=== PATIENT | female | born 1985 | race Caucasian/White ===

== ENCOUNTER 2018-10-26 21:10 | Inpatient (IN) | payer MEDICAID ==
[2018-10-26] MEDS ORDERED: ceFAZolin 2 GM in Premix Bag 1 BAG IV ONE (21:37)
[2018-10-26] MEDS ORDERED: Scopolamine 1.5 MG Transdermal Patch TOP ONE (21:38)
[2018-10-26] MEDS ORDERED: Citric Acid/Sodium Citrate Solution 30 ML Cup PO ONE (21:48)
[2018-10-26] MEDS ORDERED: Citric Acid/Sodium Citrate Solution 30 ML Cup ONE (21:53)
--- NOTE | 2018-10-26 22:13 | PCM.LDHP ---
L&D History of Present Illness - General Date of Service: 10/26/18 Admit Problem/Dx: Patient Status Order with Admit Dx/Problem 10/26/18 21:03 Admission Status [Patient Status] [ADT] Routine Admission Diagnosis/Problem Admission Diagnosis/Problem deliv due to previous difficult deliv, deliv, curr hospitaliz Source of Information: Patient History Limitations: Reports: No Limitations - History of Present Illness Introduction:: Nena is a 33 yo female from [place] [address] at 39 weeks who presented in active labor. Started earlier today,and she believes she has been leaking fluid all day. Her last 2 deliveries were C sections,the first due to breech delivery. She also states that she had a 'bladder repair' after the second one.She is anxious and complains of "freaking out' ,being nauseas. denies any fever,chills or vaginal bleeding Timing/Duration: Reports: minutes: (5-6) Location, : Reports: Abdomen Improves with: Reports: None Worsens with: Reports: None Associated Symptoms: Reports: vaginal discharge. Denies: vaginal bleeding, vaginal clots, vaginal tissue - Related Data Allergies/Adverse Reactions: Allergies Allergy/AdvReac Type Severity Reaction Status Date / Time latex Allergy Other Verified 10/27/18 01:42 Home Medications: Home Meds Omeprazole Magnesium [Prilosec Otc] 20 mg PO BID 10/27/18 [History] Vits #93/Iron Fum/FA [ Formula Tablet] 1 tab PO DAILY 10/27/18 [History] Ranitidine [Zantac] 75 mg PO DAILY 10/27/18 [History] buPROPion [Wellbutrin] 300 mg PO BID 10/27/18 [History] busPIRone [Buspar] 30 mg PO BID 10/27/18 [History] traZODone 100 mg PO DAILY PRN 10/27/18 [History] Past Medical History Psychiatric History: Reports: Anxiety, Depression - Past Surgical History Female Surgical History: Reports: Section Social & Family History - Tobacco Use Smoking Status *Q: Current Some Day Smoker - Recreational Drug Use Recreational Drug Type: Reports: Methamphetamine H&P Review of Systems - Review of Systems: Review Of Systems: ROS reveals no pertinent complaints other than HPI. L&D Exam - Exam Exam: See Below - OB Specific Contraction Intensity: Moderate Heart Rate (FHR) Variability: Moderate (6-25 bmp) - Donahue Score Donahue Score Consistency: Firm Donahue Score Effacement: 31-50% Donahue Score Dilation: 1-2 cm Donahue Score Infant's Station: -2 - Exam General: Alert, Oriented HEENT: PERRLA, Conjunctiva Clear, EACs Clear, EOMI, Hearing Intact, Mucosa Moist & [place], Nares Patent, Normal Nasal Septum, Posterior Pharynx Clear, TMs Clear Neck: Supple, Trachea Midline Lungs: Clear to Auscultation, Normal Respiratory Effort Cardiovascular: Regular Rate, Regular Rhythm GI/Abdominal Exam: Normal Bowel Sounds, Soft, Non-Tender, No Organomegaly, No Distention, No Abnormal Bruit, No Mass, Pelvis Stable Rectal Exam: Normal Exam, Normal Rectal Tone Genitourinary: Normal external exam, Normal bimanual exam, Normal speculum exam Back Exam: Normal Inspection, Full Range of Motion Extremities: Normal Inspection, Normal Range of Motion, Non-Tender, No Pedal Edema, Normal Capillary Refill Skin: Warm, Dry, Intact Neurological: Cranial Nerves Intact, Reflexes Equal Bilateral Psychiatric: Alert, Normal Affect, Normal Mood - Patient Data Lab Results Last 24 hrs: Laboratory Results - last 24 hr 10/26/18 Range/Units 21:47 WBC 10.1 (4.5-12.0) X10-3/uL RBC 3.49 (3.23-5.20) x10(6)uL Hgb 9.6 L (11.5-15.5) g/dL Hct 28.7 L (30.0-51.3) % MCV 82.0 (80-96) fL MCH 27.4 L (27.7-33.6) pg MCHC 33.4 (32.2-35.4) g/dL RDW 14.1 (11.5-15.5) % Plt Count 230 (125-369) X10(3)uL MPV 10.4 (7.4-10.4) fL Neut % (Auto) 65.5 (46-82) % Lymph % (Auto) 26.2 (13-37) % [place] % (Auto) 7.2 (4-12) % Eos % (Auto) 1 (1.0-5.0) % Baso % (Auto) 0 (0-2) % Neut # (Auto) 6.7 (1.6-8.3) # Lymph # (Auto) 2.6 (0.6-5.0) # [place] # (Auto) 0.7 (0.0-1.3) # Eos # (Auto) 0.1 (0.0-0.8) # Baso # (Auto) 0.0 (0.0-0.2) # Result Diagrams: 10/27/18 06:00 10/27/18 06:00 - Problem List (1) Term SNOMED Code(s): 76071106 ICD Code: Z34.90 - ENCNTR FOR SUPRVSN OF NORMAL , UNSP, UNSP TRIMESTER Status: Acute Current Visit: Yes (2) H/O: SNOMED Code(s): 842490619 ICD Code: Z98.891 - HISTORY OF UTERINE SCAR FROM PREVIOUS SURGERY Status: Acute Current Visit: Yes (3) Active labor SNOMED Code(s): 711612212 ICD Code: [id number] - Status: Acute Current Visit: Yes (4) Drug abuse during SNOMED Code(s): 886289225 ICD Code: O99.320 - DRUG USE COMPLICATING , UNSPECIFIED TRIMESTER; F19.10 - OTHER PSYCHOACTIVE SUBSTANCE ABUSE, UNCOMPLICATED Status: Acute Current Visit: Yes Problem List Initiated/Reviewed/Updated: Yes Orders Last 24hrs: Active Orders 24 hr Category Date Time Status Admission Status [Patient Status] [ADT] Routine ADT 10/26/18 21:03 Active TYPE AND SCREEN [BBK] Routine Lab 10/26/18 21:47 Received Assessment/Plan Comment:: Discussed risks and benefits. Obtained consent. Will CBC,type and screen and proceed for a repeat C section,transverse,lower uterine section.
[2018-10-26] MEDS ORDERED: Metoclopramide 10 MG/2 ML SDV IVPUSH ONE (23:19)
[2018-10-26] MEDS ORDERED: Midazolam 1 MG/ML 2 ML SDV IV ONE (23:19)
[2018-10-26] MEDS ORDERED: Ketorolac 30 MG/ML SDV IVPUSH ONE (23:19)
[2018-10-26] MEDS ORDERED: Morphine PF 10 MG/10 ML SDV IV ONE (23:19)
[2018-10-26] MEDS ORDERED: Ondansetron 4 MG/2 ML SDV IVPUSH ONE (23:19)
[2018-10-26] MEDS ORDERED: ePHEDrine 50 MG/ML SDV IVPUSH PRN (23:21)
[2018-10-26] MEDS ORDERED: Naloxone 0.4 MG/ML SDV IVPUSH PRN ×2 (23:21→23:47)
[2018-10-26] MEDS ORDERED: diphenhydrAMINE 50 MG/ML SDV IVPUSH PRN (23:21)
[2018-10-26] MEDS ORDERED: Ondansetron 4 MG/2 ML SDV IVPUSH PRN (23:47)
[2018-10-26] MEDS ORDERED: Ketorolac 15 MG/ML SDV IVPUSH PRN (23:47)
[2018-10-26] MEDS ORDERED: diphenhydrAMINE 50 MG/ML SDV IV PRN (23:47)
[2018-10-27] MEDS: Lactated Ringers 1,000 ML IV SCH ×5 (00:18→17:00)
--- NOTE | 2018-10-27 06:23 | OR ---
DATE OF OPERATION: 10/26/2018 SURGEON: Humphrey Blackburn MD ATTENDANT CHILD ACTIVITY: Dr. Olivo. PREOPERATIVE DIAGNOSES: 1. Intrauterine at 39 weeks, history of previous section x2, and the patient desires repeat section. 2. History of drug abuse. POSTOPERATIVE DIAGNOSES: 1. Intrauterine at 39 weeks, history of previous section x2, and the patient desires repeat section. 2. History of drug abuse. PROCEDURE: Repeat section, lower uterine segment. ANESTHESIA: Spinal. ESTIMATED BLOOD LOSS: 850 mL. COMPLICATIONS: None. FINDINGS: A male infant in breech presentation with scores of 9 and 9, weight pending. Uterus and tubes and ovaries were noted and to be normal. INDICATIONS: A 33-year-old female, who presented at term from the long term in uterine contractions and has had previous C-sections. The procedure was described in detail to the patient, and she accepted the risks and benefits. PROCEDURE NOTE: The patient was taken to the OR, where the spinal anesthesia was administered without difficulty. The patient was prepped and draped in the usual sterile fashion in the dorsal supine position with a leftward tilt. A Pfannenstiel incision was made with a scalpel and carried through to the underlying layer of fascia. The fascia was incised in the midline and extended laterally with Horne scissors. Chin clamps were used to elevate the superior and inferior aspects of the fascial incision and the underlying rectus muscles were sharply dissected using Horne scissors. The muscles were dissected in the midline and they were found to be attached to the peritoneum, which was entered sharply, making sure not to injure the bladder or the internal organs. After stretching, a bladder blade was placed and the uterine reflection of the peritoneum was made. An incision was made around the lower uterine segment in a transverse fashion, which was then extended with manual traction. Clear fluid was noted. The infant was found to be in servando breech and was delivered without any difficulty. The cord was cut and clamped. The was handed to the awaiting nurses. The placenta was delivered after obtaining cord blood. The uterus was exteriorized and cleared of all clots and debris. The uterine incision was repaired in 2 layers using 0 Vicryl sutures. Hemostasis was visualized, one [id number] stitch was needed to complete hemostasis. The uterus was returned to the maternal abdomen and copious irrigation was performed of the pelvis. The fascia was then closed with a 1-0 Vicryl suture and the skin was closed with a 3-0 Vicryl subcutaneously. The sponge, lap, and instrument counts were correct x2. The patient was stable at the completion of the procedure and was subsequently transferred to the recovery room in stable condition. Estimated blood loss about 850 mL. Please note that the patient got Pitocin after the delivery of placenta and had got 2 g of Ancef prior to the incision by standard protocol. /[id number] CHRIS/MODL
[2018-10-27] MEDS ORDERED: Sodium Chloride 0.9% 10 ML Syringe FLUSH PRN (09:01)
--- NOTE | 2018-10-27 09:04 | PCM.PNPP ---
- General Info Date of Service: 10/27/18 Subjective Update: Has some pain.No bleeding Functional Status: Reports: Tolerating Diet. Denies: Pain Controlled, Ambulating - Review of Systems HEENT: Reports: No Symptoms Pulmonary: Reports: No Symptoms Cardiovascular: Reports: No Symptoms Gastrointestinal: Reports: No Symptoms - Patient Data Vital Signs - Most Recent: Last Vital Signs Temp 97.5 F 10/27/18 00:15 Pulse 104 H 10/27/18 04:48 Resp 18 10/27/18 02:30 BP 107/61 10/27/18 03:22 Pulse Ox 99 10/27/18 04:48 Weight - Most Recent: 68.039 kg I&O - Last 24 Hours: Intake & Output 10/26/18 10/27/18 10/27/18 22:59 06:59 14:59 Output Total 350 Balance -350 Lab Results - Last 24 Hours: Laboratory Results - last 24 hr 10/26/18 10/26/18 10/27/18 Range/Units 21:47 21:47 06:00 WBC 10.1 17.0 H (4.5-12.0) X10-3/uL RBC 3.49 2.50 L (3.23-5.20) x10(6)uL Hgb 9.6 L 7.0 L (11.5-15.5) g/dL Hct 28.7 L 20.4 L* (30.0-51.3) % MCV 82.0 81.8 (80-96) fL MCH 27.4 L 28.0 (27.7-33.6) pg MCHC 33.4 34.2 (32.2-35.4) g/dL RDW 14.1 13.8 (11.5-15.5) % Plt Count 230 192 (125-369) X10(3)uL MPV 10.4 11.2 H (7.4-10.4) fL Neut % (Auto) 65.5 72.4 (46-82) % Lymph % (Auto) 26.2 20.3 (13-37) % [place] % (Auto) 7.2 5.7 (4-12) % Eos % (Auto) 1 1 (1.0-5.0) % Baso % (Auto) 0 0 (0-2) % Neut # (Auto) 6.7 12.3 H (1.6-8.3) # Lymph # (Auto) 2.6 3.4 (0.6-5.0) # [place] # (Auto) 0.7 1.0 (0.0-1.3) # Eos # (Auto) 0.1 0.2 (0.0-0.8) # Baso # (Auto) 0.0 0.1 (0.0-0.2) # Sodium (135-145) mmol/L Potassium (3.5-5.3) mmol/L Chloride (100-110) mmol/L Carbon Dioxide (21-32) mmol/L BUN (7-18) mg/dL Creatinine (0.55-1.02) mg/dL Est Cr Clr Drug Dosing mL/min Estimated GFR (MDRD) (>60) BUN/Creatinine Ratio (9-20) Glucose (80-116) mg/dL Calcium (8.6-10.2) mg/dL Blood Type A POSITIVE Gel Antibody Screen Negative 10/27/18 Range/Units 06:00 WBC (4.5-12.0) X10-3/uL RBC (3.23-5.20) x10(6)uL Hgb (11.5-15.5) g/dL Hct (30.0-51.3) % MCV (80-96) fL MCH (27.7-33.6) pg MCHC (32.2-35.4) g/dL RDW (11.5-15.5) % Plt Count (125-369) X10(3)uL MPV (7.4-10.4) fL Neut % (Auto) (46-82) % Lymph % (Auto) (13-37) % [place] % (Auto) (4-12) % Eos % (Auto) (1.0-5.0) % Baso % (Auto) (0-2) % Neut # (Auto) (1.6-8.3) # Lymph # (Auto) (0.6-5.0) # [place] # (Auto) (0.0-1.3) # Eos # (Auto) (0.0-0.8) # Baso # (Auto) (0.0-0.2) # Sodium 136 (135-145) mmol/L Potassium 3.9 (3.5-5.3) mmol/L Chloride 104 (100-110) mmol/L Carbon Dioxide 24 (21-32) mmol/L BUN 13 (7-18) mg/dL Creatinine 0.5 L (0.55-1.02) mg/dL Est Cr Clr Drug Dosing 133.62 mL/min Estimated GFR (MDRD) > 60 (>60) BUN/Creatinine Ratio 26.0 H (9-20) Glucose 83 (80-116) mg/dL Calcium 7.7 L (8.6-10.2) mg/dL Blood Type Gel Antibody Screen Med Orders - Current: Current Medications Diphenhydramine HCl (Benadryl) 25 mg IVPUSH Q6H PRN PRN Reason: Itching or Nausea Diphenhydramine HCl (Benadryl) 25 mg IV ONETIME PRN PRN Reason: Pruritus Ephedrine Sulfate (Ephedrine Sulfate) 5 mg IVPUSH ASDIRECTED PRN PRN Reason: Other Ferrous Sulfate (Ferrous Sulfate) 325 mg PO TIDMEALS [facility]OR[facility] Lactated Ringer's (Ringers, Lactated) 1,000 mls @ 250 mls/hr IV ASDIRECTED DORA Last Admin: 10/27/18 08:53 Dose: 250 mls/hr Ibuprofen (Motrin) 600 mg PO Q6H [facility] Naloxone HCl (Narcan) 0.1 mg IVPUSH ONETIME PRN PRN Reason: Respiratory Depression Naloxone HCl (Narcan) 0.1 mg IVPUSH ONETIME PRN PRN Reason: Oversedation Ondansetron HCl (Zofran) 4 mg IVPUSH Q6H PRN PRN Reason: Nausea/Vomiting Oxycodone/Acetaminophen (Percocet 325-5 Mg) 1 tab PO Q6H PRN PRN Reason: Breakthrough Pain Sodium Chloride (Saline Flush) 10 ml FLUSH ASDIRECTED PRN PRN Reason: IV Use Discontinued Medications Citric Acid/Sodium Citrate (Bicitra Solution) 30 ml PO ONETIME ONE Stop: 10/26/18 21:49 Last Admin: 10/27/18 02:56 Dose: 30 ml Citric Acid/Sodium Citrate (Bicitra Solution) Confirm Administered Dose 30 ml .ROUTE .STK-MED ONE Stop: 10/26/18 21:54 Last Admin: 10/27/18 01:30 Dose: Not Given Cefazolin Sodium/Dextrose 2 gm (/ Premix) 50 mls @ 100 mls/hr IV ONETIME ONE Stop: 10/26/18 22:06 Last Admin: 10/26/18 21:58 Dose: 100 mls/hr Ketorolac Tromethamine (Toradol) 15 mg IVPUSH Q6H PRN PRN Reason: Pain Stop: 10/31/18 23:49 Last Admin: 10/27/18 03:27 Dose: 15 mg Scopolamine (Transderm-Scop) 1.5 mg TOP ONETIME ONE Stop: 10/26/18 21:39 Last Admin: 10/26/18 21:59 Dose: 1.5 mg - Interaction Infant Disposition, : to Nursery - Recovery Exam Fundal Tone: Firm Fundal Level: At Umbilicus Fundal Placement: Midline Lochia Amount: Scant Lochia Color: Rubra/Red - Exam General: Alert, Oriented Neck: Supple Lungs: Clear to Auscultation Cardiovascular: Regular Rate - Problem List & Annotations (1) Term SNOMED Code(s): 25637120 Code(s): Z34.90 - ENCNTR FOR SUPRVSN OF NORMAL , UNSP, UNSP TRIMESTER Status: Acute Current Visit: Yes (2) H/O: SNOMED Code(s): 145262239 Code(s): Z98.891 - HISTORY OF UTERINE SCAR FROM PREVIOUS SURGERY Status: Acute Current Visit: Yes (3) Active labor SNOMED Code(s): 793754902 Code(s): RCC6850 - Status: Acute Current Visit: Yes (4) Drug abuse during SNOMED Code(s): 705936417 Code(s): O99.320 - DRUG USE COMPLICATING , UNSPECIFIED TRIMESTER; F19.10 - OTHER PSYCHOACTIVE SUBSTANCE ABUSE, UNCOMPLICATED Status: Acute Current Visit: Yes (5) Anemia, blood loss SNOMED Code(s): 765266626 Code(s): D50.0 - IRON DEFICIENCY ANEMIA SECONDARY TO BLOOD LOSS (CHRONIC) Status: Acute Current Visit: Yes - Problem List Review Problem List Initiated/Reviewed/Updated: Yes - My Orders Last 24 Hours: My Active Orders 10/26/18 21:03 Admission Status [Patient Status] [ADT] Routine 10/26/18 23:21 Bedrest [RC] ASDIRECTED Intake and Output [RC] 06,14,22 RT Incentive Spirometry [RC] Q4HWA Vital Signs [RC] PER UNIT ROUTINE Consult to Case Management/Floor Covering Contractor [CONS] Routine Naloxone [Narcan] 0.1 mg IVPUSH ONETIME PRN diphenhydrAMINE [Benadryl] 25 mg IVPUSH Q6H PRN ePHEDrine [ePHEDrine sulfate] 5 mg IVPUSH ASDIRECTED PRN Resuscitation Status Routine 10/26/18 23:30 Lactated Ringers [Ringers, Lactated] 1,000 ml IV ASDIRECTED 10/27/18 09:01 Acetaminophen/oxyCODONE [Percocet 325-5 MG] 1 tab PO Q6H PRN Sodium Chloride 0.9% [Saline Flush] 10 ml FLUSH ASDIRECTED PRN 10/27/18 09:15 Ibuprofen [Motrin] 600 mg PO Q6H 10/27/18 12:00 Ferrous Sulfate 325 mg PO TIDMEALS 10/28/18 05:11 CBC WITH AUTO DIFF [HEME] AM - Plan Plan:: Start Percocet prn. Iron replacement,repeat CBC in AM
[2018-10-27] MEDS ORDERED: traZODone 100 MG Tab PO PRN (09:07)
[2018-10-27] MEDS ORDERED: Bisacodyl 5 MG Tab PO PRN (09:08)
[2018-10-27] MEDS: Prenatal Multivitamin with Calcium/Folic Acid/Fe Fumarate Cap PO SCH (09:49)
[2018-10-27] MEDS: Ibuprofen 600 MG Tab PO SCH ×3 (09:49→21:12)
[2018-10-27] MEDS: buPROPion 150 MG Tab.ER PO SCH (10:16)
[2018-10-27] MEDS: busPIRone 15 MG Tab PO SCH ×2 (10:16→21:12)
[2018-10-27] MEDS: Pantoprazole 40 MG Tab.CR PO SCH ×2 (10:16→21:12)
[2018-10-27] MEDS: Famotidine 20 MG Tab PO SCH (10:16)
[2018-10-27] MEDS: Ferrous Sulfate 325 MG Tab PO SCH ×2 (12:22→17:01)
[2018-10-27] MEDS: Acetaminophen/oxyCODONE 325-5 MG Tab PO PRN (18:57)
[2018-10-27] MEDS ORDERED: Nicotine 14 MG/24 Hr Patch TRDERM SCH (19:30)
[2018-10-28] MEDS: Acetaminophen/oxyCODONE 325-5 MG Tab PO PRN ×4 (00:29→20:19)
[2018-10-28] MEDS: Ibuprofen 600 MG Tab PO SCH ×4 (03:15→22:38)
[2018-10-28] MEDS ORDERED: HYDROmorphone 2 MG/ML SDV IM SCH (05:30)
[2018-10-28] MEDS ORDERED: HYDROmorphone 2 MG/ML SDV IM PRN (05:47)
[2018-10-28] MEDS ORDERED: Sodium Chloride 0.9% 250 ML IV SCH (07:00)
[2018-10-28] MEDS: Pantoprazole 40 MG Tab.CR PO SCH ×2 (07:10→22:39)
[2018-10-28] MEDS: Prenatal Multivitamin with Calcium/Folic Acid/Fe Fumarate Cap PO SCH (08:39)
[2018-10-28] MEDS: Ferrous Sulfate 325 MG Tab PO SCH ×3 (08:39→18:09)
[2018-10-28] MEDS: buPROPion 150 MG Tab.ER PO SCH (08:39)
[2018-10-28] MEDS: busPIRone 15 MG Tab PO SCH ×2 (08:40→22:39)
[2018-10-28] MEDS: Famotidine 20 MG Tab PO SCH (08:40)
[2018-10-28] MEDS: Acetaminophen 325 MG Tab PO SCH ×2 (18:08→22:38)
[2018-10-28] MEDS ORDERED: Nicotine 14 MG/24 Hr Patch TRDERM SCH (20:00)
--- NOTE | 2018-10-28 22:34 | PCM.PNPP ---
- General Info Date of Service: 10/28/18 Subjective Update: Doing well today. Hgb dropped down to 5.5,and she has got 2 units.She wants to go home. Functional Status: Reports: Pain Controlled, Tolerating Diet - Review of Systems General: Reports: No Symptoms HEENT: Reports: No Symptoms Pulmonary: Reports: No Symptoms Cardiovascular: Reports: No Symptoms Gastrointestinal: Reports: No Symptoms Genitourinary: Reports: No Symptoms Musculoskeletal: Reports: No Symptoms Skin: Reports: No Symptoms Neurological: Reports: No Symptoms Psychiatric: Reports: No Symptoms - General Info Date of Service: 10/28/18 - Patient Data Vital Signs - Most Recent: Last Vital Signs Temp 99.0 F 10/28/18 19:01 Pulse 96 10/28/18 19:01 Resp 18 10/28/18 19:01 BP 115/73 10/28/18 19:01 Pulse Ox 99 10/28/18 08:10 Weight - Most Recent: 68.039 kg I&O - Last 24 Hours: Intake & Output 10/28/18 10/28/18 10/28/18 06:59 14:59 22:59 Intake Total 472 370 Balance 472 370 Lab Results - Last 24 Hours: Laboratory Results - last 24 hr 10/26/18 10/28/18 10/28/18 Range/Units 21:47 06:25 21:45 WBC 12.5 H (4.5-12.0) X10-3/uL RBC 1.98 L (3.23-5.20) x10(6)uL Hgb 5.6 L* 7.5 L (11.5-15.5) g/dL Hct 16.2 L* 22.0 L (30.0-51.3) % MCV 81.8 (80-96) fL MCH 28.0 (27.7-33.6) pg MCHC 34.3 (32.2-35.4) g/dL RDW 13.9 (11.5-15.5) % Plt Count 206 (125-369) X10(3)uL MPV 11.0 H (7.4-10.4) fL Neut % (Auto) 73.0 (46-82) % Lymph % (Auto) 18.0 (13-37) % [place] % (Auto) 6.7 (4-12) % Eos % (Auto) 2 (1.0-5.0) % Baso % (Auto) 0 (0-2) % Neut # (Auto) 9.3 H (1.6-8.3) # Lymph # (Auto) 2.2 (0.6-5.0) # [place] # (Auto) 0.8 (0.0-1.3) # Eos # (Auto) 0.2 (0.0-0.8) # Baso # (Auto) 0.0 (0.0-0.2) # Blood Type A POSITIVE Gel Antibody Screen Negative Crossmatch See Detail Med Orders - Current: Current Medications Acetaminophen (Tylenol) 325 mg PO Q4H [facility] Last Admin: 10/28/18 18:08 Dose: 325 mg Bisacodyl (Dulcolax) 5 mg PO BID PRN PRN Reason: Constipation Bupropion HCl (Wellbutrin Xl) 300 mg PO DAILY [facility] Last Admin: 10/28/18 08:39 Dose: 300 mg Buspirone HCl (Buspar) 30 mg PO BID [facility] Last Admin: 10/28/18 08:40 Dose: 30 mg Famotidine (Pepcid) 20 mg PO DAILY [facility] Last Admin: 10/28/18 08:40 Dose: 20 mg Ferrous Sulfate (Ferrous Sulfate) 325 mg PO TIDMEALS [facility] Last Admin: 10/28/18 18:09 Dose: 325 mg Hydromorphone HCl (Dilaudid) 1 mg IM Q6H PRN PRN Reason: Pain Last Admin: 10/28/18 05:50 Dose: 1 mg Sodium Chloride (Normal Saline) 250 mls @ 100 mls/hr IV ASDIRECTED [facility] Ibuprofen (Motrin) 600 mg PO Q6H [facility] Last Admin: 10/28/18 15:38 Dose: 600 mg Nicotine (Habitrol) 14 mg TRDERM Q24H [facility] Last Admin: 10/28/18 20:24 Dose: 14 mg Oxycodone/Acetaminophen (Percocet 325-5 Mg) 1 tab PO Q6H PRN PRN Reason: Breakthrough Pain Last Admin: 10/28/18 20:19 Dose: 1 tab Pantoprazole Sodium (Protonix) 40 mg PO 0730,2100 [facility] Last Admin: 10/28/18 07:10 Dose: 40 mg Multivit/Folic Acid/Iron (-U) 1 each PO DAILY [facility] Last Admin: 10/28/18 08:39 Dose: 1 each Sodium Chloride (Saline Flush) 10 ml FLUSH ASDIRECTED PRN PRN Reason: IV Use Last Admin: 10/28/18 08:10 Dose: 10 ml Trazodone HCl (Trazodone) 100 mg PO DAILY PRN PRN Reason: Anxiety Discontinued Medications Citric Acid/Sodium Citrate (Bicitra Solution) 30 ml PO ONETIME ONE Stop: 10/26/18 21:49 Last Admin: 10/27/18 02:56 Dose: 30 ml Citric Acid/Sodium Citrate (Bicitra Solution) Confirm Administered Dose 30 ml .ROUTE .STK-MED ONE Stop: 10/26/18 21:54 Last Admin: 10/27/18 01:30 Dose: Not Given Diphenhydramine HCl (Benadryl) 25 mg IVPUSH Q6H PRN PRN Reason: Itching or Nausea Diphenhydramine HCl (Benadryl) 25 mg IV ONETIME PRN PRN Reason: Pruritus Ephedrine Sulfate (Ephedrine Sulfate) 5 mg IVPUSH ASDIRECTED PRN PRN Reason: Other Hydromorphone HCl (Dilaudid) 1 mg IM Q6H [facility] Last Admin: 10/28/18 08:33 Dose: Not Given Cefazolin Sodium/Dextrose 2 gm (/ Premix) 50 mls @ 100 mls/hr IV ONETIME ONE Stop: 10/26/18 22:06 Last Admin: 10/26/18 21:58 Dose: 100 mls/hr Lactated Ringer's (Ringers, Lactated) 1,000 mls @ 250 mls/hr IV ASDIRECTED [facility] Last Admin: 10/27/18 17:00 Dose: 250 mls/hr Ketorolac Tromethamine (Toradol) 15 mg IVPUSH Q6H PRN PRN Reason: Pain Stop: 10/31/18 23:49 Last Admin: 10/27/18 03:27 Dose: 15 mg Naloxone HCl (Narcan) 0.1 mg IVPUSH ONETIME PRN PRN Reason: Respiratory Depression Naloxone HCl (Narcan) 0.1 mg IVPUSH ONETIME PRN PRN Reason: Oversedation Nicotine (Habitrol) 14 mg TRDERM DAILY [facility] Last Admin: 10/27/18 21:19 Dose: 14 mg Ondansetron HCl (Zofran) 4 mg IVPUSH Q6H PRN PRN Reason: Nausea/Vomiting Scopolamine (Transderm-Scop) 1.5 mg TOP ONETIME ONE Stop: 10/26/18 21:39 Last Admin: 10/26/18 21:59 Dose: 1.5 mg - Interaction Infant Disposition, : to Nursery - Recovery Exam Fundal Tone: Firm Fundal Level: 1 Fingerbreadths Below Umbilicus Fundal Placement: Midline Lochia Amount: Small Lochia Color: Rubra/Red Perineum Description: Intact, Minimal Bruising/Swelling Bladder Status: Voiding Urinary Elimination: Voided - Exam General: Alert, Oriented HEENT: Pupils Equal Neck: Supple Lungs: Clear to Auscultation, Normal Respiratory Effort Cardiovascular: Regular Rate, Regular Rhythm GI/Abdominal Exam: Normal Bowel Sounds, Soft, Non-Tender, No Organomegaly, No Distention, No Abnormal Bruit, No Mass, Pelvis Stable Extremities: Normal Inspection, Normal Range of Motion, Non-Tender, No Pedal Edema, Normal Capillary Refill Skin: Warm, Dry, Intact Wound/Incisions: Healing Well Neurological: No New Focal Deficit Psy/Mental Status: Alert, Normal Affect, Normal Mood - Problem List & Annotations (1) Term SNOMED Code(s): 64138384 Code(s): Z34.90 - ENCNTR FOR SUPRVSN OF NORMAL , UNSP, UNSP TRIMESTER Status: Acute Current Visit: Yes (2) H/O: SNOMED Code(s): 816235405 Code(s): Z98.891 - HISTORY OF UTERINE SCAR FROM PREVIOUS SURGERY Status: Acute Current Visit: Yes (3) Active labor SNOMED Code(s): 408770591 Code(s): UYE5852 - Status: Acute Current Visit: Yes (4) Drug abuse during SNOMED Code(s): 221073004 Code(s): O99.320 - DRUG USE COMPLICATING , UNSPECIFIED TRIMESTER; F19.10 - OTHER PSYCHOACTIVE SUBSTANCE ABUSE, UNCOMPLICATED Status: Acute Current Visit: Yes (5) Anemia, blood loss SNOMED Code(s): 216939318 Code(s): D50.0 - IRON DEFICIENCY ANEMIA SECONDARY TO BLOOD LOSS (CHRONIC) Status: Acute Current Visit: Yes - Problem List Review Problem List Initiated/Reviewed/Updated: Yes - My Orders Last 24 Hours: My Active Orders 10/28/18 05:47 HYDROmorphone [Dilaudid] 1 mg IM Q6H PRN 10/28/18 06:59 Transfuse Red Blood Cells [COMM] Routine 10/28/18 07:00 Sodium Chloride 0.9% [Normal Saline] 250 ml IV ASDIRECTED 10/28/18 18:00 Acetaminophen [Tylenol] 325 mg PO Q4H 10/28/18 20:00 Nicotine [Habitrol] 14 mg TRDERM Q24H - Plan Plan:: DC home on iron supplantation,and check wound and hgb in 2 weeks.
[2018-10-28] MEDS ORDERED: Acetaminophen/oxyCODONE 325-5 MG Tab PO ONE (23:19)
--- NOTE | 2018-10-29 06:39 | DISCH ---
DISCHARGE DATE: 10/28/2018 REASON FOR ADMISSION: 1. Term , in active labor. 2. History of previous section. 3. Anxiety. 4. Depression. 5. Substance abuse. DISCHARGE DIAGNOSES: 1. Term , in active labor. 2. History of previous section. 3. Anxiety. 4. Depression. 5. Substance abuse. 6. Acute blood-loss anemia. BRIEF HISTORY: A 33-year-old female, who has had a previous section, who presented from the longterm in labor, noel every 5 minutes. She was about 39 weeks, and as such, it necessitated us to go into surgery for repeat section that was done at around midnight. She had some 850 mL of blood intraoperatively. Otherwise, there were no other complications. Hemoglobin 7.5 the next day, and on September 28, this morning, it was 5.5, and we gave her 2 units of PRBCs. She improved. She was asymptomatic. Her pain was controlled with Percocet. Because of current situation, the social workers will take the baby for foster care, and that will be tomorrow. The patient expressed interest to go home tonight. DISCHARGE MEDICATIONS: 1. Ferrous sulfate 325 mg t.i.d. 2. Percocet 1 tablet every 8 hours, 8 tablets given through the emergency room kit. 3. Motrin 600 mg p.o. q.6 hours. She will also go home on her usual prescriptions of Wellbutrin and Celexa. I advised her to go to the ER if she gets any new symptoms, e.g., fever or increasing bleeding or worsening pain. For routine followup, I would like her to be seen in 2 weeks and have a repeat hemoglobin and wound check at that time. I spent more than 35 minutes in the discharge of the patient. /[id number] CHRIS/KIARRA
== END 2018-10-28 23:20 | disposition home or self-care (01) | DRG 787 ==
LOC: FB.OBCHECK 21:10 → FB.OB 21:11 → FB.OBCHECK 21:38 → FB.OB 21:40
PROVIDERS: ADMIT Family Medicine; ATTEND Family Medicine
PROC: 10D00Z1 Extraction of Products of Conception, Low, Open Approach (ICD-10-PCS; principal; 2018-10-26)
PROC: 6A550ZT Pheresis of Cord Blood Stem Cells, Single (ICD-10-PCS; 2018-10-26)
PROC: 30233N1 Transfusion of Nonautologous Red Blood Cells into Peripheral Vein, Percutaneous Approach (ICD-10-PCS; 2018-10-28)
DX: O34.211 Maternal care for low transverse scar from previous cesarean delivery (principal); O99.324 Drug use complicating childbirth; D62 Acute posthemorrhagic anemia; O99.334 Smoking (tobacco) complicating childbirth; F15.10 Other stimulant abuse, uncomplicated; O99.344 Other mental disorders complicating childbirth; N85.8 Other specified noninflammatory disorders of uterus; Z3A.39 39 weeks gestation of pregnancy; Z37.0 Single live birth; F32.9 Major depressive disorder, single episode, unspecified; F41.9 Anxiety disorder, unspecified; Z91.040 Latex allergy status; O99.02 Anemia complicating childbirth
CPT/HCPCS: 36415; 36430; 80048; 85014; 85018; 85025; 86850; 86900; 86901; 86920; 86922; 88307; 99211; A9270-GY; J0690; J1170; J1885; J2250; J2270; J2405; J2590; J2765; J7120; P9016